=== PATIENT | female | born 1960 | race Caucasian/White ===

== ENCOUNTER → 2017-08-04 | Outpatient (CLI) | payer BC ==
[~2017-08-04] MED LIST: CENTRUM1 TAB PO; FISH OIL CONC1000 MG PO; LORTAB 5/500 501 TAB PO
== END ==
LOC: COL.VAS 13:15
DX: Z13.6 Encounter for screening for cardiovascular disorders (principal); M79.89 Other specified soft tissue disorders; Z98.890 Other specified postprocedural states